=== PATIENT | male | born 1975 | race Caucasian/White ===

== ENCOUNTER 2025-05-07 17:25 | Emergency (ER) | payer BC, SELFPAY ==
[2025-05-07 17:31] VITALS: BP 170/110; PULSE 88; TEMP 36.7; O2SAT 97; BMI 32.3
--- NOTE | 2025-05-07 17:37 | CT_ITS ---
[address] [address] Patient Name: LENA TREVIÑO MRN: [id number] date: 1975 Sex: M Assigned Patient Location: ER Current Patient Location: ER Accession/Order Number: [id number] Exam Date: 05/07/2025 18:19 Report Date: 05/07/2025 18:24 At the request of: TIFF PIERCE Procedure: CT abdomen pelvis wo con CT abdomen pelvis wo con 05/07/2025 5:57 PM SIGNS AND SYMPTOMS: ^right flank pain TECHNIQUE: Multidetector ct axial images of the abdomen and pelvis were obtained without IV contrast. Multiplanar reformats were performed and reviewed to further define anatomy and possible pathology. CT was performed with one or more of the following dose reduction techniques: Automated exposure control, adjustment of the mA and/or kV according to patient size, or use of iterative reconstruction technique. COMPARISON: None. FINDINGS: Lower Chest: Within normal limits. ABDOMEN: Liver: The liver is diffusely hypoattenuating suggesting hepatic steatosis. Bile Ducts: Normal caliber. Gallbladder: No calcified gallstones. Normal caliber wall. Pancreas: Within normal limits. Spleen: Within normal limits. Adrenals: Within normal limits. Kidneys: There is right-sided hydronephrosis with right-sided perinephric fat stranding. Pelvis: Reproductive Organs: No pelvic masses. Ureters: There is a 4 mm stone in the distal right ureter with right-sided hydroureter proximal to this. Bladder: Within normal limits. Bowel: Normal caliber. There is a normal appendix in the right lower quadrant. Mesenteric Lymph Nodes: No enlarged mesenteric lymph nodes. Peritoneum: No ascites or free air, no fluid collection. Vessels: within normal limits Retroperitoneum: Within normal limits. Abdominal Wall: Within normal limits. Bones: Bilateral L5 pars defects are noted with grade 1 spondylolisthesis of L5 upon S1. Degenerative changes are noted in the sacroiliac joints. CT/CT abdomen pelvis wo con IMPRESSION: There is a 4 mm stone in the distal right ureter with right-sided hydroureter proximal to this. There is right-sided hydronephrosis. Bilateral L5 pars defects are noted with grade 1 spondylolisthesis of L5 upon S1. Impression dictated by: Hill Luna M.D. 05/07/2025 6:24 PM Dictation Location: [place] [address] Electronically authenticated by: [id number] Y Date: 05/07/2025 18:24
--- NOTE | 2025-05-07 17:42 | PC.NURSE ---
Pt presents to ER for right groin pain Pt states around 4pm today he experienced a sudden sharp pain in his right side that radiated down into his groin Pt states this pain has since left the flank area and is only present in the groin When asked to describe where the pain in the groin is located he states the suprapubic area and down into the testicles Pt states since the pain has started he is experiencing urinary frequency and urgency On arrival patient states pain is a 9/10 Urine sample obtained, patient placed in gown, IV established and labs obtained
[2025-05-07] MEDS: KETOROLAC TROMETHAMINE 30 MG/ML VIAL IVP (17:46)
[2025-05-07] MEDS: 0.9 % SODIUM CHLORIDE 1,000 ML 100 ML IV (17:46)
[2025-05-07 18:00] LABS: Hematocrit 40.1 % (42.0-54.0); Hemoglobin 13.7 g/dL (14.0-18.0); Immature Granulocytes Abs Auto 0.05 10^3/uL (0.00-0.03); Immature Granulocytes Pct Auto 0.6 % (0.0-0.5); Lymphocytes Absolute Auto 1.5 10^3/uL (1.2-3.8); Mean Corpuscular HGB Conc 34.2 g/dL (29.9-35.2); Mean Corpuscular Hemoglobin 29.1 pg (25.9-34.0); Mean Corpuscular Volume 85.1 fL (80.0-94.0); Platelet Count 227 10^3/uL (150-450); Red Blood Count 4.71 10^6/uL (4.70-6.10); White Blood Count 8.6 10^3/uL (4.0-11.0)
[2025-05-07 18:09] LABS: Glucose Urine UA NEGATIVE (NEGATIVE)
[2025-05-07 18:21] LABS: Cast Seen? NONE SEEN #/LPF (NONE SEEN); Crystals Seen? None Seen #/HPF (None Seen); Urine Culture Indicated NO
[2025-05-07 18:37] LABS: Alanine Aminotransferase 51 U/L (16-63); Albumin Globulin Ratio 1.1; Albumin Level 3.9 g/dL (3.4-5.0); Alkaline Phosphatase 57 U/L (46-116); Anion Gap 12.5; Aspartate Amino Transferase 27 U/L (15-37); Blood Urea Nitrogen 20.0 mg/dL (7.0-18.0); Calcium 9.7 mg/dL (8.5-10.1); Carbon Dioxide 28.6 mmol/L (21.0-32.0); Chloride 107 mmol/L (98-107); Estimated GFR (African America 58 (>=60 mL/min/1.73m^2); Estimated GFR (Non-African Ame 48 (>=60 mL/min/1.73m^2); Globulin 3.4 g/dL; Glucose 128 mg/dL (74-106); Potassium 4.1 mmol/L (3.5-5.1); Sodium 144 mmol/L (136-145); Total Protein 7.3 g/dL (6.4-8.2)
--- OUTSIDE RECORDS SUMMARY | 2025-05-07 18:37 | XMS_ITS | Clinical Summary ---
Author Organization [facility] Address [address] [facility] [place] [address] Care Team Providers Care Stars Coordinator Name Role Phone Vangie Ley MD Primary Care Provider [phone] Sol Barker CLAIM CLINICIAN Unavailable Allergies Active Allergy Reactions Criticality Noted Date Comments Yellow Jacket Venom Other 04/01/2023 Medications atorvastatin (Lipitor) 20 MG tabletIndications: Mixed hyperlipidemia TAKE 1 TABLET DAILY 90 tablet 3 04/05/20 25 Active fenofibrate (Tricor) 145 MG tabletIndications: Mixed hyperlipidemia TAKE 1 TABLET DAILY 90 tablet 1 04/18/20 25 Active lisinopril 40 MG tabletIndications: Primary hypertension TAKE 1 TABLET IN THE MORNING 90 tablet 1 04/18/20 25 Active lisinopril 40 MG tabletIndications: Primary hypertension TAKE 1 TABLET IN THE MORNING 90 tablet 1 10/22/20 24 025 Discontinued fenofibrate (Tricor) 145 MG tabletIndications: Mixed hyperlipidemia TAKE 1 TABLET DAILY 90 tablet 1 10/22/20 24 025 Discontinued Active Problems Problem Noted Date Diagnosed Date Hyperlipidemia 04/01/2023 Obesity 04/01/2023 Primary hypertension 04/01/2023 Seasonal allergic rhinitis 04/01/2023 Encounters Date Type Department Care Team Description 05/07/2025 Clinisync Result Encounter [facility] External Department Unsolicited Ginger Pierce PA 04/18/2025 Refill [facility] [address] [place] [address] Beatriz Ovalle NP Mixed hyperlipidemia ; Primary hypertension 04/06/2025 Results Follow-Up [facility] [address] [facility] [place] [address] Beatriz Ovalle NP 04/05/2025 [facility] [address] [facility] [place] [id number] Beatriz Ovalle NP Mixed hyperlipidemia 04/04/2025 2:00 PM EDT Office Visit [place] [id number] [place] [phone] Sol Barker NP Primary hypertension (Primary Dx); Mixed hyperlipidemia ; Class 1 obesity due to excess calories with serious comorbidity and body mass index (BMI) of 31.0 to 31.9 in adult; Seasonal allergic rhinitis, unspecified trigger; Encounter for wellness examination 04/04/2025 [employer] flowsheet [place] [address] [place] [phone] Sol Barker NP 04/04/2025 Travel from Last 3 Months Immunizations Immunization Administration Dates Next Due Moderna SARS-CoV-2 Vaccination 10/22/2021 Tdap 05/28/2014 Family History Medical History Relation Name Comments Alzheimer's disease Father Dementia Father Parkinsonism Father Diabetes Mother Hypertension Mother Relation Name Status Comments Father Alive Mother Alive Social History Tobacco Use Types Packs/Day Years Used Date Smoking Tobacco: Former Cigarettes 1 982 - 1999 Smokeless Tobacco: Never Tobacco Cessation:Counseling Given: Not Answered Comments:Last smoked: >10 years Alcohol Use Standard Drinks/Week Comments Yes 4 (1 standard drink = 0.6 oz pure alcohol) Caffeine intake: 2-3 cups per day of coffee, soda and teas B1300 Health Literacy Answer Date Recor ded How often do you need to hav e someone help you when you read instructions, pamphlets, or other written material from your doctor or pharmacy? Never 04/12/2024 Humiliation, Afraid, Rape, and Kick questionnair e Answer Date Recorded Within the last year, have y ou been afraid of your partner or ex-partner? No 04/04/2023 Within the last year, have y ou been humiliated or emotionally abused in other ways by your partner or ex-partner? No Within the last year, have y ou been kicked, hit, slapped, or otherwise physically hurt by your partner or ex-partner? No 04/04/2023 Within the last year, have y ou been raped or forced to have any kind of sexual activity by your partner or ex-partner? No 04/04/2023 Social Connection and Isolation Panel [NHANES] A nswer Date Recorded In a typical week, how many times do you talk on the phone with family, friends, or neighbors? Never 04/12/2024 How often do you get together with friends or re latives? Never 04/12/2024 How often do you attend protestant or tenriism serv ices? Never 04/12/2024 Do you belong to any clubs o r organizations such as protestant groups, unions, fraternal or athletic groups, or school groups? No 04/12/2024 How often do you attend meet ings of the clubs or organizations you belong to? Never 04/12/2024 Are you , , di vorced, , never , or living with a partner? 04/12/2024 AUDIT-C Answer Date Recorded Q1: How often do you have a drink containing alc ohol? 2-3 times a week 04/12/2024 Q2: How many drinks containi ng alcohol do you have on a typical day when you are drinking? 1 or 2 04/12/2024 Q3: How often do you have si x or more drinks on one occasion? Less than monthly 04/12/2024 Overall Financial Resource Strain (CARDIA) Answe r Date Recorded How hard is it for you to pa y for the very basics like food, housing, medical care, and heating? Not hard at all 04/12/2024 PHQ-2 Answer Date Recorded Patient Health Questionnaire-2 Score 0 04/04/2025 [facility] [place] of Occupat ional Health - Occupational Stress Questionnaire Answer Date Recorded Do you feel stress - tense, restless, nervous, or anxious, or unable to sleep at night because your mind is troubled all the time - these days? Not at all 04/12/2024 Exercise Vital Sign Answer Date Recorde d On average, how many days pe r week do you engage in moderate to strenuous exercise (like a brisk walk)? 2 days 04/12/2024 On average, how many minutes do you engage in exercise at this level? 20 min 04/12/2024 Hunger Vital Sign Answer Date Recorded Within the past 12 months, y ou worried that your food would run out before you got the money to buy more. Never true 04/12/20 24 Within the past 12 months, t he food you bought just didn't last and you didn't have money to get more. Never true 04/12/2024 PRAPARE - Transportation Answer Date Re corded In the past 12 months, has l ack of transportation kept you from medical appointments or from getting medications? No 03/25 In the past 12 months, has l ack of transportation kept you from meetings, work, or from getting things needed for daily living? No 04/12/2024 Housing Stability Vital Sign Answer Lacho e Recorded In the last 12 months, was t here a time when you were not able to pay the mortgage or rent on time? Patient refused 04/04/20 23 In the last 12 months, how many places have you lived? 1 04/04/2023 In the last 12 months, was t here a time when you did not have a steady place to sleep or slept in a penitentiary (including now)? Patient refused 04/04/2023 Housing Stability Vital Sign Answer Lacho e Recorded In the last 12 months, was t here a time when you were not able to pay the mortgage or rent on time? No 04/12/2024 Number of Times Moved in the Last Year Not on fi le 04/12/2024 At any time in the past 12 m [facility], were you homeless or living in a penitentiary (including now)? No 04/12/2024 Sex and Gender Information Value Date Recorded Sex Assigned at Male 04/04/2023 12:10 PM EDT Legal Sex Male 7:17 PM EDT Gender Identity Male 04/04/2023 12:10 PM EDT Sexual Orientation Straight 04/04/2023 12 :10 PM EDT Last Filed Vital Signs Vital Sign Reading Time Taken Comments Blood Pressure 130/92 04/04/2025 1:52 PM EDT Pulse 80 04/04/2025 1:52 PM EDT Temperature 36.1 C (96.9 F) 09/06/2023 1:31 PM EST Respiratory Rate - - Oxygen Saturation 98% 04/04/2025 1:52 PM EDT Inhaled Oxygen Concentration - - Weight 112 kg (246 lb 3.2 oz) 04/04/2025 1:52 PM EDT Height 187.3 cm (6' 1.75 ) 04/13/2024 8:02 AM ED T Body Mass Index 31.82 04/13/2024 8:02 AM EDT Plan of Treatment Health Maintenance Due Date Last Done Comments CT Colonography 1975 Colonoscopy 1975 FIT 1975 FOBT 1975 Sigmoidoscopy 1975 Influenza Vaccine (#1) 2025 Colorectal Cancer Screening 04/16/2026 FIT-DNA 04/16/2026 04/16/2023 Procedures Procedure Name Priority Date/Time Associated Diagnosis Comments CT ABDOMEN/PELVIS WO CONT 05/07/2025 6:24 PM EDT COMPREHENSIVE METABOLIC PANEL Routine 04/04/2025 2:21 PM EDT Primary hypertension LIPID PANEL Routine 04/04/2025 2:21 PM EDT Mixed hyperlipidemia LAB COLOGUARD COLON CANCER SCREEN Routine 04/16/2023 10:29 AM EDT Encounter for screening for malignant neoplasm of colon from Last 3 Months or Most Recently Relevant to Health Maintenance Results * CT ABDOMEN/PELVIS WO CONT (05/07/2025 6:24 PM EDT) Anatomical Region Laterality Modality Radiographic Nurys ging 05/07/2025 6:24 PM EDT Narrative 05/07/2025 6:26 PM EDT The [address] [address] [address] Scan Report Signed Patient: LENA TREVIÑO MR#: [id number] : 1975 Acct:[id number] Age/Sex: 49 / M ADM Date: Loc: ER Attending Dr: Ordering Physician: Ginger Pierce Date of Service: 05/07/25 Procedure(s): CT abdomen pelvis wo con Accession Number(s): [id number] cc: The [place] [id number] Patient Name: LENA TREVIÑO MRN: [id number] date: 1975 Sex: M Assigned Patient Location: ER Current Patient Location: ER Accession/Order Number: [id number] Exam Date: 05/07/2025 18:19 Report Date: 05/07/2025 18:24 At the request of: GINGER PIERCE Procedure: CT abdomen pelvis wo con CT abdomen pelvis wo con 05/07/2025 5:57 PM SIGNS AND SYMPTOMS: right flank pain TECHNIQUE: Multidetector ct axial images of the abdomen and pelvis were obtained without IV contrast. Multiplanar reformats were performed and reviewed to further define anatomy and possible pathology. CT was performed with one or more of the following dose reduction techniques: Automated exposure control, adjustment of the mA and/or kV according to patient size, or use of iterative reconstruction technique. COMPARISON: None. FINDINGS: Lower Chest: Within normal limits. ABDOMEN: Liver: The liver is diffusely hypoattenuating suggesting hepatic steatosis. Bile Ducts: Normal caliber. Gallbladder: No calcified gallstones. Normal caliber wall. Pancreas: Within normal limits. Spleen: Within normal limits. Adrenals: Within normal limits. Kidneys: There is right-sided hydronephrosis with right-sided perinephric fat stranding. Pelvis: Reproductive Organs: No pelvic masses. Ureters: There is a 4 mm stone in the distal right ureter with right-sided hydroureter proximal to this. Bladder: Within normal limits. Bowel: Normal caliber. There is a normal appendix in the right lower quadrant. Mesenteric Lymph Nodes: No enlarged mesenteric lymph nodes. Peritoneum: No ascites or free air, no fluid collection. Vessels: within normal limits Retroperitoneum: Within normal limits. Abdominal Wall: Within normal limits. Bones: Bilateral L5 pars defects are noted with grade 1 spondylolisthesis of L5 upon S1. Degenerative changes are noted in the sacroiliac joints. CT/CT abdomen pelvis wo con IMPRESSION: There is a 4 mm stone in the distal right ureter with right-sided hydroureter proximal to this. There is right-sided hydronephrosis. Bilateral L5 pars defects are noted with grade 1 spondylolisthesis of L5 upon S1. Impression dictated by: Hill Luna M.D. 05/07/2025 6:24 PM Dictation Location: [place] [address] Electronically authenticated by: [id number] Y Date: 05/07/2025 18:24 Dictated By: Hill Luna M.D. Signed By: 05/07/251825 DD/ 23 TD/TT: Tempering Kiln Tender: Procedure Note Radiology, Radiologist, MD - 05/07/2025 [place] [address] CT Scan Report Signed Patient: LENA TREVIÑO R#: [id number] : 1975Acct:[id number] Age/Sex: 49 / MADM Date: Loc: ER Attending Dr: Ordering Physician: Ginger Pierce Date of Service: 05/07/25 Procedure(s): CT abdomen pelvis wo con Accession Number(s): [id number] cc: The [place] [address] Patient Name: LENA TREVIÑO MRN: [id number] date: 1975 Sex: M Assigned Patient Location: ER Current Patient Location: ER Accession/Order Number: [id number] Exam Date: 05/07/2025 18:19 Report Date: 05/07/2025 18:24 At the request of: GINGER PIERCE Procedure: CT abdomen pelvis wo con CT abdomen pelvis wo con 05/07/2025 5:57 PM SIGNS AND SYMPTOMS: right flank pain TECHNIQUE: Multidetector ct axial images of the abdomen and pelvis were obtained without IV contrast. Multiplanar reformats were performed and reviewed to further define anatomy and possible pathology. CT wasperformed with one or more of the following dose reduction techniques: Automated exposure control, adjustment of the mA and/or kV according to patientsize, or use of iterative reconstruction technique. COMPARISON: None. FINDINGS: Lower Chest: Within normal limits. ABDOMEN: Liver: The liver is diffusely hypoattenuating suggesting hepaticsteatosis. Bile Ducts: Normal caliber. Gallbladder: No calcified gallstones. Normal caliber wall. Pancreas: Within normal limits. Spleen: Within normal limits. Adrenals: Within normal limits. Kidneys: There is right-sided hydronephrosis with right-sided perinephricfat stranding. Pelvis: Reproductive Organs: No pelvic masses. Ureters: There is a 4 mm stone in the distal right ureter with right-sided hydroureter proximal to this. Bladder: Within normal limits. Bowel: Normal caliber. There is a normal appendix in the right lower quadrant. Mesenteric Lymph Nodes: No enlarged mesenteric lymph nodes. Peritoneum: No ascites or free air, no fluid collection. Vessels: within normal limits Retroperitoneum: Within normal limits. Abdominal Wall: Within normal limits. Bones: Bilateral L5 pars defects are noted with grade 1 spondylolisthesisof L5 upon S1. Degenerative changes are noted in the sacroiliac joints. CT/CT abdomen pelvis wo con IMPRESSION: There is a 4 mm stone in the distal right ureter with right-sidedhydroureter proximal to this. There is right-sided hydronephrosis. Bilateral L5 pars defects are noted with grade 1 spondylolisthesis of L5upon S1. Impression dictated by: Hill Luna M.D. 05/07/2025 6:24 PM Dictation Location: [place] [address] Electronically authenticated by: [id number] Y Date: 8:24 Dictated By: Hill Luna M.D. Signed By:05/07/25 1826 DD/ 1824 TD/TT: Tempering Kiln Tender: Ginger CRAWFORD IMG XR PROCEDURES Final Result * (ABNORMAL) Lipid panel (04/04/2025 2:21 PM EDT) CHOLESTEROL, TOTAL 155 <200 mg/dL [facility] HDL CHOLESTEROL 38(L) > OR = 40 mg/dL [facility] TRIGLYCERIDES 249(H) <150 mg/dL [facility] Comment: If a non-fasting specimen was collected, consider repeat triglyceride testing on a fasting specimen if clinically indicated. Joselo et al. J. of Clin. Lipidol. 2015;9:129-169. LDL CHOLESTEROL 84 mg/dL (calc) [facility] Comment: Reference range: <100 Desirable range <100 mg/dL for primary prevention; <70 mg/dL for patients with CHD or diabetic patients with > or = 2 CHD risk factors. LDL-C is now calculated using the Cheng calculation, which is a validated novel method providing better accuracy than the Friedewald equation in the estimation of LDL-C. Gorge BILL et al. MARIO ALBERTO. 2013;310(19): 6305-5798 (http://education.[employer]/faq/JPE130) CHOL/HDLC RATIO 4.1 <5.0 (calc) [facility] NON HDL CHOLESTEROL 117 <130 mg/dL (calc) [facility] Comment: For patients with diabetes plus 1 major ASCVD risk factor, treating to a non-HDL-C goal of <100 mg/dL (LDL-C of <70 mg/dL) is considered a therapeutic option. Blood Venous blood specimen / Unknown 04/04/2025 2:21 PM EDT 04/04/2025 2:22 PM EDT Narrative Resulting Agency Comment Performing Organization Information Site ID: QPT Name: [facility] Address: [address] [place] [address], [address] [place] [phone] Director: Jack Guevara MD Sol Barker NP LAB BLOOD ORDERABLES Fi nal Result [facility] * Comprehensive metabolic panel (04/04/2025 2:21 PM EDT) [facility] Glucose 89 65 - 99 mg/dL [facility] Comment: Fasting reference interval BUN 14 7 - 25 mg/dL [facility] Creatinine 1.13 0.60 - 1.29 mg/dL [facility] EGFR 81 > OR = 60 mL/min/1. 73m2 [facility] BUN/CREATININE RATIO SEE NOTE: 6 - 22 (calc) [facility] Comment: Not Reported: BUN and Creatinine are within reference range. Sodium 140 135 - 146 mmol/L [facility] Potassium, Bld 4.1 3.5 - 5.3 mmol/L [facility] Chloride 104 98 - 110 mmol/L [facility] Carbon Dioxide 28 20 - 32 mmol/L [facility] Calcium 9.1 8.6 - 10.3 mg/dL [facility] PROTEIN, TOTAL 6.6 6.1 - 8.1 g/dL [facility] ALBUMIN 4.4 3.6 - 5.1 g/dL [facility] GLOBULIN 2.2 1.9 - 3.7 g/dL (calc) [facility] ALBUMIN/GLOBULIN RATIO 2.0 1.0 - 2.5 (calc) [facility] BILIRUBIN, TOTAL 0.7 0.2 - 1.2 mg/dL [facility] ALKALINE PHOSPHATASE 40 36 - 130 U/L [facility] AST 22 10 - 40 U/L [facility] ALT 32 9 - 46 U/L [facility] Blood Venous blood specimen / Unknown 04/04/2025 2:21 PM EDT 04/04/2025 2:22 PM EDT Narrative Resulting Agency Comment Performing Organization Information Site ID: QPT Name: [facility] Address: [address] [place] [address], [address] [place] [phone] Director: Jack Guevara MD Sol Barker CLAIM CLINICIAN LAB BLOOD ORDERABLES Fi nal Result [facility] * Cologuard?? colon cancer screening (04/16/2023 10:29 AM EDT) NONINV COLON CA DNA+OCC BLD SCRN STL-IMP Negative Negative 04/21/2023 2:08 PM EDT [facility] (CLIA #:[id number]) Comment: NEGATIVE TEST RESULT. A negative Cologuard result indicates a low likelihood that a colorectal cancer (CRC) or advanced adenoma (adenomatous polyps with more advanced pre-malignant features) is present. The chance that a person with a negative Cologuard test has a colorectal cancer is less than 1 in 1500 (negative predictive value >99.9%) or has an advanced adenoma is less than 5.3% (negative predictive value 94.7%). These data are based on a prospective cross-sectional study of 10,000 individuals at average risk for colorectal cancer who were screened with both Cologuard and colonoscopy. (Divya Joseph al, N Engl J Med 2014;370(14):2266-7796) The normal value (reference range) for this assay is negative. COLOGUARD RE-SCREENING RECOMMENDATION: Periodic colorectal cancer screening is an important part of preventive healthcare for asymptomatic individuals at average risk for colorectal cancer. Following a negative Cologuard result, the [place] [employer] and U.S. Multi-Society Task Force screening guidelines recommend a Cologuard re-screening interval of 3 years. References: [place] [employer] Guideline for Colorectal Cancer Screening: https://www.cancer.org/cancer/xaepk-rclkiu-wixgkz/ermtabgad-ikqvhcaqu-wtybaso/ac s-rec ommendations.html.; Tommie DK, Ailyn ANSARI, Mayur VenturaK, Colorectal Cancer Screening: Recommendations for Physicians and Patients from the U.S. Multi-Society Task Force on Colorectal Cancer Screening , Am J Gastroenterology 2017; 112:8108-7612. TEST DESCRIPTION: Composite algorithmic analysis of stool DNA-biomarkers with hemoglobin immunoassay. Quantitative values of individual biomarkers are not reportable and are not associated with individual biomarker result reference ranges. Cologuard is intended for colorectal cancer screening of adults of either sex, 45 years or older, who are at average-risk for colorectal cancer (CRC). Cologuard has been approved for use by the U.S. FDA. The performance of Cologuard was established in a cross sectional study of average-risk adults aged 50-84. Cologuard performance in patients ages 45 to 49 years was estimated by sub-group analysis of near-age groups. Colonoscopies performed for a positive result may find as the most clinically significant lesion: colorectal cancer [4.0%], advanced adenoma (including sessile serrated polyps greater than or equal to 1cm diameter) [20%] or non- advanced adenoma [31%]; or no colorectal neoplasia [45%]. These estimates are derived from a prospective cross-sectional screening study of 10,000 individuals at average risk for colorectal cancer who were screened with both Cologuard and colonoscopy. (Divya Joseph al, N Engl J Med 2014;370(14):8554-5467.) Cologuard may produce a false negative or false positive result (no colorectal cancer or precancerous polyp present at colonoscopy follow up). A negative Cologuard test result does not guarantee the absence of CRC or advanced adenoma (pre-cancer). The current Cologuard screening interval is every 3 years. ([place] [employer] and U.S. Multi-Society Task Force). Cologuard performance data in a 10,000 patient pivotal study using colonoscopy as the reference method can be accessed at the following location: www.[employer].com/results. Additional description of the Cologuard test process, warnings and precautions can be found at www.cologHornet Networksrd.com. Stool specimen (specimen) 04/16/2023 10:29 AM EDT 04/18/2023 5:08 AM EDT Sol Barker CLAIM CLINICIAN LAB MOLECULAR DIAGNOSTI CS ORDERABLES Final Result .[facility] (CLIA #:[id number]) [address] [place] [address], [place] [phone] [facility] (CLIA #:[id number]) [address] [place] [address] from Last 3 Months or Most Recently Relevant to Health Maintenance Insurance BCBS Care Teams Stars Coordinator Relationship Specialty Start Date End Date Vangie Ley MD [address] [place] [address] PCP - General Family Medicine 04/05/23 Sol Barker NP [address] [place] [address] Nurse Practitioner Family Medicine 04/05/23
--- OUTSIDE RECORDS SUMMARY | 2025-05-07 18:37 | XMS_ITS | Encounter Summary ---
Author Organization [facility] Address [address] [facility] [place] [address] Care Team Providers Care Citrus Fruit Colorer Name Role Phone Vangie Ley MD Primary Care Provider [phone] Sol Barker [employer] Unavailable [phone] Encounter Details Date Type Department Care Team (Late st Contact Info) Description 05/07/2025 Clinisync Result Encounter [facility] External Department Unsolicited Ginger Pierce PA [address] [place] [address] Dr Nath, [facility] Social History Tobacco Use Types Packs/Day Years Used Date Smoking Tobacco: Former Cigarettes - 1999 Smokeless Tobacco: Never Comments:Last smoked: >10 ye ars Alcohol Use Standard Drinks/Week Comments Yes 4 [...] Never 04/12/2024 How often do you attend caodaism or baptism serv ices? Never 04/12/2024 Do you belong to any clubs o r organizations such as caodaism groups, unions, fraternal or athletic groups, or [...] Recorded Patient Health Questionnaire-2 Score 0 04/04/2025 [facility] - Occupational Stress [...] place to sleep or slept in a nursing home (including now)? Patient refused 04/04/2023 Housing Stability Vital Sign Answer Lacho e Recorded In the last 12 months, was t here a time when you were not able to pay the mortgage or rent on time? No 04/12/2024 Number of Times Moved in the Last Year Not on fi le 04/12/2024 At any time in the past 12 m [facility], were you homeless or living in a nursing home (including now)? No 04/12/2024 Sex and Gender Information Value Date Recorded Sex Assigned at Male 04/04/2023 12:10 PM EDT Legal Sex Male 7:17 PM EDT Gender Identity Male 04/04/2023 12:10 PM EDT Sexual Orientation Straight 04/04/2023 12 :10 PM EDT documented as of this encounter Plan of Treatment Not on file documented as of this encounter Procedures Procedure Name Priority Date/Time Associated Diagnosis Comments CT ABDOMEN/PELVIS WO CONT 05/07/2025 6:24 PM EDT documented in this encounter Results * CT ABDOMEN/PELVIS WO CONT (05/07/2025 6:24 PM EDT) Anatomical Region Laterality Modality Radiographic Nurys ging 05/07/2025 6:24 PM EDT Narrative 05/07/2025 6:26 PM EDT [address] [address] [address] Scan Report Signed Patient: ANTONIO TREVIÑO MR#: [id number] : 1975 Acct:[id number] Age/Sex: 49 / M ADM Date: Loc: ER Attending Dr: Ordering Physician: Ginger Pierce Date of Service: 05/07/25 Procedure(s): CT abdomen pelvis wo con Accession Number(s): [id number] cc: [address] [address] Patient Name: ANTONIO TREVIÑO MRN: [id number] date: 1975 Sex: M Assigned Patient Location: ER Current Patient Location: ER Accession/Order Number: [id number] Exam Date: 05/07/2025 18:19 Report Date: 05/07/2025 [...] Luna M.D. 05/07/2025 6:24 PM Dictation Location: [place] [address] Electronically authenticated by: [id number] Y Date: 05/07/2025 18:24 Dictated By: Hill Luna M.D. Signed By: 05/07/251825 DD/ 23 TD/TT: Substation Design Draftsperson: Procedure Note Radiology, Radiologist, MD - 05/07/2025 [place] [address] CT Scan Report Signed Patient: ANTONIO TREVIÑO JMR#: [id number] : 1975Acct:[id number] Age/Sex: 49 / MADM Date: Loc: ER Attending Dr: Ordering Physician: Ginger Pierce Date of Service: 05/07/25 Procedure(s): CT abdomen pelvis wo con Accession Number(s): [id number] cc: [facility] [place] [address] Patient Name: ANTONIO TREVIÑO MRN: [id number] date: 1975 Sex: M Assigned Patient Location: ER Current Patient Location: ER Accession/Order Number: [id number] Exam Date: 05/07/2025 18:19 Report Date: 05/07/2025 [...] Luna M.D. 05/07/2025 6:24 PM Dictation Location: [place] [address] Electronically authenticated by: [id number] Y Date: 8:24 Dictated By: Hill Luna M.D. Signed By:05/07/251825 DD/ 23 TD/TT: Substation Design Draftsperson: Ginger CRAWFORD IMG XR PROCEDURES Final Result documented in this encounter Visit Diagnoses Not on filedocumented in this encounter Care Teams Citrus Fruit Colorer Relationship Specialty Start Date End Date Vangie Ley MD [address] [place] [address] PCP - General Family Medicine 04/05/23 Sol Barker NP [address] [place] [address] Nurse Practitioner Family Medicine 04/05/23 documented as of this encounter
--- OUTSIDE RECORDS SUMMARY | 2025-05-07 18:37 | XMS_ITS | Encounter Summary ---
Author Organization [facility] Address [address] [facility] [place] [address] Care Team Providers Care Mail Reader Name Role Phone Vangie Ley MD Primary Care Provider [phone] Sol Barker LABEL TACKER Unavailable [phone] Encounter Details Date Type Department Care Team ([facility] st Contact Info) Description 04/06/2025 Results Follow-Up [facility] [address] [place] [address] Beatriz Ovalle NP [address] [place], [place] [id number] Social History Tobacco Use Types Packs/Day Years [...] Never 04/12/2024 How often do you attend rastafari or buddhism serv ices? Never 04/12/2024 Do you belong to any clubs o r organizations such as rastafari groups, unions, fraternal or athletic groups, or [...] Recorded Patient Health Questionnaire-2 Score 0 04/04/2025 [facility] - [...] place to sleep or slept in a senior living (including now)? Patient refused 04/04/2023 Housing Stability Vital Sign Answer Lacho e Recorded In the last 12 months, was t here a time when you were not able to pay the mortgage or rent on time? No 04/12/2024 Number of Times Moved in the Last Year Not on fi le 04/12/2024 At any time in the past 12 m [facility], were you homeless or living in a senior living (including now)? No 04/12/2024 Sex and Gender Information Value Date Recorded Sex Assigned at Male 04/04/2023 12:10 PM EDT Legal Sex Male 7:17 PM EDT Gender Identity Male 04/04/2023 12:10 PM EDT Sexual Orientation Straight 04/04/2023 12 :10 PM EDT documented as of this encounter Plan of Treatment Not on file documented as of this encounter Visit Diagnoses Not on filedocumented in this encounter Care Teams Mail Reader Relationship Specialty Start Date End Date Vangie Ley MD [address] [place] [address] PCP - General Family Medicine 04/05/23 Sol Barker NP [address] [place] [address] Nurse Practitioner Family Medicine 04/05/23 documented as of this encounter
[2025-05-07 18:47] VITALS: BP 160/94; PULSE 84; O2SAT 99
--- NOTE | 2025-05-07 18:53 | ED_ITS ---
HPI HPI - General Adult General Chief complaint: Urogenital-Male Stated complaint: PAIN IN LOWER EXTREMITIES Time Seen by Provider: 05/07/25 17:36 Source: patient Mode of arrival: walk-in Limitations: no limitations History of Present Illness HPI narrative: 49-year-old male presents for chief complaint of right flank pain that radiates into his groin. Patient states he was outside working and suddenly felt the pain radiating from flank to groin area. He states he did have nausea as well. Denies a known history of stones. Patient denies any other pain, nausea ,vomiting ,or difficulty with urination. Patient states symptoms began shortly prior to arrival today Related Data Home Medications ?Medication ?Instructions ?Recorded ?Confirmed atorvastatin 10 mg tablet 10 mg PO DAILY 05/07/2504/23 fenofibrate 50 mg capsule 50 mg PO DAILY 05/07/2504/23 lisinopril 5 mg tablet 5 mg PO DAILY 05/07/2505/07 Previous Rx's ?Medication ?Instructions ?Recorded ibuprofen 800 mg tablet 800 mg PO Q8H PRN pain #20 t abs 05/07/25 ondansetron HCl 4 mg tablet 4 mg PO Q8H 3 days #9 tabs 05/07/25 tamsulosin 0.4 mg capsule (Flomax) 0.4 mg PO DAILY #4 caps 05/07/25 Allergies Allergy/AdvReac Type Severity Reaction Status Date / Time No Known Drug Allergies Allergy Verified 05/07/25 17:34 Opioid HPI Opioid Management Most Recent Opioid Data: Last Pain Scale 3 Today, 18:48 Last ED Pain Assessment Today, 18:48 Last MAR Pain Assessment Today, 17:46 Review of Systems ROS Status of ROS 10 or more systems reviewed and unremark able except as noted in history and below PFSH PFSH Social History Little interest or pleasure in doing things: not at all Feeling down, depressed, or hopeless: not at all Exam Narrative Exam Narrative: All Systems are negative except as noted/marked.All systems reviewed and otherwise negative Nurses note and vital signs reviewed and patient is not hypoxic. General: The patient appears well and in no apparent distress. Patient is resting comfortably on cart. Skin: Warm, dry, no pallor noted. There is no rash noted. Head: Normocephalic, atraumatic Eye: Normal conjunctiva, no drainage, EOMI. PERRL Ears, Nose, Mouth, and Throat: oral mucosa is moist. Nares patent. Mouth without vesicles. Ear canals patent. Tm's without Erythema Cardiovascular: Regular Rate and Rhythm Respiratory: Patient is in no distress, no accessory muscle use, lungs are clear to auscultation, no wheezing, rales or rhonchi Back: non-tender, no CVA tenderness bilaterally to percussion. GI: Normal bowel sounds, no tenderness to palpation, no masses appreciated. No rebound, guarding, or rigidity noted. Musculoskeletal: The patient has no evidence of calf tenderness, no pitting edema, symmetrical pulses noted bilaterally Neurological: A&O x4, normal speech Psychiatric: Cooperative Constitutional Vital Signs, click to edit/add: Last Vital Signs Temp 98.1 F 05/07/25 17:31 Pulse 84 05/07/25 18:47 Resp 18 05/07/25 18:47 BP 160/94 H 05/07/25 18:47 Pulse Ox 99 05/07/25 18:47 O2 Del Method Room Air 05/07/25 17:31 Course Vital Signs Vital signs: Vital Signs Temperature 98.1 F 05/07/25 17:31 Pulse Rate 88 05/07/25 17:31 Respiratory Rate 18 05/07/25 17:31 Blood Pressure 170/110 H 05/07/25 17:31 Pulse Oximetry 97 05/07/25 17:31 Oxygen Delivery Method Room Air 05/07/25 17:31 Temperature 98.1 F 05/07/25 17:31 Pulse Rate 84 05/07/25 18:47 Respiratory Rate 18 05/07/25 18:47 Blood Pressure 160/94 H 05/07/25 18:47 Pulse Oximetry 99 05/07/25 18:47 Oxygen Delivery Method Room Air 05/07/25 17:31 Medical Decision Making MDM Narrative Medical decision making narrative: 49-year-old male presents for chief complaint of right flank pain that radiates into his groin. Patient states he was outside working and suddenly felt the pain radiating from flank to groin area. He states he did have nausea as well. Denies a known history of stones. Patient denies any other pain, nausea ,vomiting ,or difficulty with urination. Patient states symptoms began shortly prior to arrival today Patient presented here chief complaint of right flank pain upon arrival to the emergency room labs were obtained IV was established patient was given 30 mg of Toradol IV and fluids. His pain did improve. Patient was taken to CT CT does show stone. Nonobstructing. Patient is able to urinate. Patient's urinalysis is negative. CBC CMP showed a mildly elevated BUN and creatinine. Patient was given fluids here in the emergency room. He has had no nausea or pain after medication of Toradol. We will discharge him home with Flomax, Zofran and ibuprofen. He will follow-up with urology. Patient agrees with plan of care. Reasons to return to emergency room including increased fever difficulty or inability to urinate were discussed. Patient agrees with plan of care. Differential Diagnosis Differential Diagnosis: kidney stone, Flank pain, renal colic Medical Records Medical records reviewed: Yes I reviewed the patient's medical records Lab Data Lab results reviewed: Yes I reviewed the patient's lab results Labs: Lab Results 05/07/25 05/07/25 Range/Units 17:43 17:47 WBC 8.6 (4.0-11.0) 10^3/uL RBC 4.71 (4.70-6.10) 10^6/uL Hgb 13.7 L (14.0-18.0) g/dL Hct 40.1 L (42.0-54.0) % MCV 85.1 (80.0-94.0) fL MCH 29.1 (25.9-34.0) pg MCHC 34.2 (29.9-35.2) g/dL RDW 13.2 (11.0-15.0) % Plt Count 227 (150-450) 10^3/uL MPV 9.9 (9.5-13.5) fL Neut % (Auto) 76.2 H (43.0-75.0) % Lymph % (Auto) 16.8 L (20.5-60.0) % [place] % (Auto) 5.6 (1.7-12.0) % Eos % (Auto) 0.5 L (0.9-7.0) % Baso % (Auto) 0.3 (0.2-2.0) % Neut # (Auto) 6.6 H (1.4-6.5) 10^3/uL Lymph # (Auto) 1.5 (1.2-3.8) 10^3/uL [place] # (Auto) 0.5 (0.3-0.8) 10^3/uL Eos # (Auto) 0.0 (0.0-0.7) 10^3/uL Baso # (Auto) 0.0 (0.0-0.1) 10^3/uL Abs Immat Gran (auto) 0.05 H (0.00-0.03) 10^3/uL Imm/Tot Granulo (auto) 0.6 H (0.0-0.5) % Sodium 144 (136-145) mmol/L Potassium 4.1 (3.5-5.1) mmol/L Chloride 107 (98-107) mmol/L Carbon Dioxide 28.6 (21.0-32.0) mmol/L Anion Gap 12.5 BUN 20.0 H (7.0-18.0) mg/dL Creatinine 1.56 H (0.70-1.30) mg/dL Est GFR ( Amer) 58 L (>=60 mL/min/1.73m^2) Est GFR (Non-Af Amer) 48 L (>=60 mL/min/1.73m^2) BUN/Creatinine Ratio 12.8 Glucose 128 H (74-106) mg/dL Calcium 9.7 (8.5-10.1) mg/dL Total Bilirubin 0.4 (0.2-1.0) mg/dL AST 27 (15-37) U/L ALT 51 (16-63) U/L Alkaline Phosphatase 57 (46-116) U/L Total Protein 7.3 (6.4-8.2) g/dL Albumin 3.9 (3.4-5.0) g/dL Globulin 3.4 g/dL Albumin/Globulin Ratio 1.1 Urine Color Lt. yellow (YELLOW) Urine Clarity Clear (CLEAR) Urine pH 6.0 (5.0-9.0) Ur Specific [place] 1.020 (1.005-1.025) Urine Protein Negative (NEG/TRACE) mg/dL Urine Glucose (UA) Negative (NEGATIVE) mg/dL Urine Ketones Negative (NEGATIVE) mg/dL Urine Occult Blood Trace-i (NEGATIVE) Urine Nitrite Negative (NEGATIVE) Urine Bilirubin Negative (NEGATIVE) Urine Urobilinogen 0.2 (0.2-1.0) EU/dL Ur Leukocyte Esterase Negative (NEGATIVE) Urine RBC 0-2 (0-2) #/HPF Urine WBC 0-2 A (NONE SEEN) #/HPF Ur Squamous Epith Cells None seen (NONE/RARE) #/LPF Urine Crystals None seen (None Seen) #/HPF Urine Bacteria Trace A (NONE SEEN) #/HPF Urine Casts None seen (NONE SEEN) #/LPF Urine Mucus None seen (NONE SEEN) Ur Culture Indicated? No Imaging Data CT scan - abdomen: Radiologist's impression: ITS Impressions Abdomen/Pelvis CT 05/07/25 17:37 IMPRESSION: There is a 4 mm stone in the distal right ureter with right-sided hydroureter proximal to this. There is right-sided hydronephrosis. Bilateral L5 pars defects are noted with grade 1 spondylolisthesis of L5 upon S1. Impression dictated by: Hill Luna M.D. 05/07/2025 6:24 PM Dictation Location: [facility] Electronically authenticated by: [id number] Y Date: 05/07/2025 18:24 Discharge Plan Discharge Chief Complaint: Urogenital-Male Clinical Impression: Kidney stones Patient Disposition: Home, Self-Care Time of Disposition Decision: 19:00 Condition: Good Prescriptions / Home Meds: New tamsulosin [Flomax] 0.4 mg capsule 0.4 mg PO DAILY Qty: 4 0RF ibuprofen 800 mg tablet 800 mg PO Q8H PRN (Reason: pain) Qty: 20 0RF ondansetron HCl 4 mg tablet 4 mg PO Q8H 3 Days Qty: 9 0RF No Action lisinopril 5 mg tablet 5 mg PO DAILY atorvastatin 10 mg tablet 10 mg PO DAILY fenofibrate 50 mg capsule 50 mg PO DAILY Print Language: Luxembourger Instructions: Kidney Stones (ED), How to Strain Your Urine (ED) Referrals: YANA SALINAS [Primary Care Provider, Family Practice] - 1 week Missael Jones MD [Physician, Urology] - 1 week
--- NOTE | 2025-05-07 19:14 | PC.NURSE ---
i walked into this patient's room to find him awake and alert sitting upright on the bed, with iv fluids infusion into his iv site, left arm. this iv site shows no signs of infiltration or pain with palpation. this patient is aware that he will be discharge after the completion of his iv fluids. this patient voices no concerns, needs and shows no signs of distress
[2025-05-07 19:31] VITALS: BP 155/88; PULSE 81; TEMP 37; O2SAT 97
--- NOTE | 2025-05-07 19:40 | PC.NURSE ---
i gave this patient verbal and paper discharge orders along with 3 e-scripts and strainer, this patient voices yes to understanding these. at time of discharge this patient voices no concerns, needs and shows no signs of distress
== END 2025-05-07 19:37 | disposition home or self-care (01) ==
PROVIDERS: Physician Assistant; Emergency Provider Emergency Medicine; PCP Family Medicine
DX: N13.2 Hydronephrosis with renal and ureteral calculous obstruction (principal)
CPT/HCPCS: 36415; 74176; 80053; 81001; 85025; 96374; 99285; J1885